=== PATIENT | male | born 1985 | race Hispanic/Latino ===

== ENCOUNTER 2021-01-04 13:00 | Emergency (ER) | payer OTHER ==
[~2021-01-04] VITALS: Ht 165.1 cm; Wt 95.5 kg
[2021-01-04 13:00] VITALS: BP 133/77
[2021-01-04] MEDS ORDERED: MORPHINE 4 MG/ML 1ML VIAL/SYRINGE (J2270) SC ONE (13:35)
--- NOTE | 2021-01-04 14:46 | REP ---
INDICATION: trauma. COMPARISON: None. TECHNIQUE: Left ribs four views, PA chest single-view. FINDINGS: Left ribs four views: There is no rib fracture or other rib abnormality. PA chest: There is no pneumothorax, hemothorax or pulmonary contusion. Lung [place] are clear. Cardiac size is upper normal. The tanner, mediastinum, and skeletal structures are unremarkable. IMPRESSION: Negative left rib series. Negative PA chest. <Electronically signed by Saúl Castro > 01/04/21 [id number]
--- NOTE | 2021-01-04 20:47 | ECGEPIP ---
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
== END 2021-01-04 15:03 | disposition home or self-care (01) ==
LOC: M ED 13:00
DX: S20.211A Contusion of right front wall of thorax, initial encounter (principal); X58.XXXA Exposure to other specified factors, initial encounter; Y92.89 Other specified places as the place of occurrence of the external cause; Y93.89 Activity, other specified; Y99.8 Other external cause status
CPT/HCPCS: 71101; 93005; 96372; 99284; J2270

== ENCOUNTER 2023-07-17 11:52 | Emergency (ER) | payer SELFPAY ==
[~2023-07-17] VITALS: Ht 165.1 cm; Wt 64.1 kg
[2023-07-17 11:52] VITALS: TEMP 99; O2SAT 99
[2023-07-17 12:58] VITALS: BP 146/90
[2023-07-17] MEDS ORDERED: ONDANSETRON 4MG 2ML VIAL IV ONE (13:10)
[2023-07-17] MEDS ORDERED: NS 1,000 ML IV ONE (13:10)
[2023-07-17 13:22] LABS: RSV AMPLIFICATION NEGATIVE (NEGATIVE)
== END 2023-07-17 13:14 | disposition left against medical advice (07) ==
LOC: M ED 11:52
DX: R07.0 Pain in throat (principal); Z53.9 Procedure and treatment not carried out, unspecified reason; F19.10 Other psychoactive substance abuse, uncomplicated

== ENCOUNTER 2023-10-26 13:19 | Emergency (ER) | payer OTHER, SELFPAY ==
[~2023-10-26] VITALS: Ht 165.1 cm; Wt 65.4 kg
[~2023-10-26 13:19] MED LIST: FOLIC ACID 1MG TAB PO SCH; MULTIVITAMINS/MINERALS THERAP 1 TAB PO SCH; THIAMINE 100 MG TAB PO SCH
[2023-10-26] MEDS ORDERED: LORazepam 2 MG/ML 1ML VIAL IV STA (13:43)
[2023-10-26] MEDS ORDERED: ONDANSETRON 4MG 2ML VIAL IV ONE (13:45)
[2023-10-26] MEDS ORDERED: LORazepam 2 MG TAB PO PRN (13:45)
[2023-10-26] MEDS ORDERED: NS 1,000 ML IV SCH (13:45)
[2023-10-26 14:12] LABS: BASO % 0.4 % (0.0-1.0); HEMATOCRIT 44.7 % (42.0-52.0); HEMOGLOBIN 15.4 g/dl (13.5-17.5); LYMPH # 1.5 10^3/uL (1.5-5.0); LYMPH % 20.5 % (24.0-44.0); MEAN CORPUSCULAR HEMOGLOBIN 34.5 pg (27.0-33.0); MEAN CORPUSCULAR HGB CONC 34.5 g/dl (32.0-36.5); MONO # 0.7 10^3/uL (0.0-0.8); NEUTROPHILS # 5.2 10^3/uL (1.5-8.5); PLATELET COUNT, AUTOMATED 246 10^3/uL (150-450); RED BLOOD COUNT 4.47 10^6/uL (4.30-6.10); WHITE BLOOD COUNT 7.4 10^3/uL (4.0-10.0)
[2023-10-26 14:38] LABS: ETHYL ALCOHOL (ETHANOL) 0.005 % (0.000-0.010)
[2023-10-26 14:40] LABS: SALICYLATE LEVEL < 3.0 MG/DL (<30)
[2023-10-26 14:41] LABS: ALBUMIN 4.6 G/DL (3.2-5.2); ALKALINE PHOSPHATASE 59 U/L (46-116); ALT/SGPT 50 U/L (7.0-40); AST/SGOT 55 U/L (<34); BILIRUBIN,DIRECT 0.4 MG/DL (<0.4); BILIRUBIN,TOTAL 1.1 MG/DL (0.3-1.2); BLOOD UREA NITROGEN 12 MG/DL (9-23); CALCIUM LEVEL 9.3 MG/DL (8.5-10.1); CARBON DIOXIDE LEVEL 21 MMOL/L (20-31); CHLORIDE LEVEL 103 MMOL/L (98-107); CREATININE FOR GFR 0.78 MG/DL (0.70-1.30); GLOMERULAR FILTRATION RATE > 60.0 (>60); GLUCOSE, FASTING 70 MG/DL (60-100); POTASSIUM SERUM 4.2 MMOL/L (3.5-5.1); SODIUM LEVEL 139 MMOL/L (136-145); TOTAL PROTEIN 7.9 G/DL (5.7-8.2)
[2023-10-26 14:42] LABS: THYROID STIMULATING HORMONE 0.577 uIU/ML (0.55-4.78)
[2023-10-26 14:45] LABS: CPK CREATINE PHOSPHOKINASE 505 U/L (46-171)
[2023-10-26 15:09] LABS: RSV AMPLIFICATION NEGATIVE (NEGATIVE)
[2023-10-26] MEDS ORDERED: NS 1,000 ML IV ONE (16:55)
[2023-10-26 17:45] VITALS: BP 141/85; O2SAT 100
[2023-10-26 18:10] VITALS: TEMP 98.7
== END 2023-10-26 18:10 | disposition home or self-care (01) ==
LOC: M ED 13:19
DX: F10.130 Alcohol abuse with withdrawal, uncomplicated (principal)
CPT/HCPCS: 80048; 80076; 80143; 82077; 82550; 84443; 85025; 87631; 93005; 93041; 94760; 96361; 96374; 96375; 99285; J2060; J2405